=== PATIENT | female | born 1975 | race Caucasian/White ===

== ENCOUNTER 2021-06-30 18:41 | Emergency (ER) | payer MEDICAID, SELFPAY ==
[2021-06-30 18:49] VITALS: BP 132/79; PULSE 142; RESP 22; TEMP 37.2; O2SAT 97; BMI 30.6
--- NOTE | 2021-06-30 18:58 | ED_ITS ---
HPI - Headache General: Chief Complaint: Headache Stated Complaint: head and neck pain Time Seen by Provider: 06/30/21 18:58 History of Present Illness: Ms. Shukla is a 46-year-old lady who presents emergency department due to headache and racing heart. She has a somewhat complex history of substance abuse, denies IV drug use, no about a month and a half ago. She was moving earlier this week and feels like she threw out her back. She primarily laid on the couch yesterday and then today around noon tried to get up when she had a popping feeling and sudden severe pain in her he ad. It took her a while to present as she did not have cell phone signal to call for help. She has also noticed racing heart. She does have a history of occasional headache however nothing like this in the past. Overall intensity symptoms has persisted. Intensity is moderate to severe. Denies associated neurologic symptoms. Has had associated generalized unwellness however denies other specific exacerbating relieving factors. Pertinent past history: other Onset (ago): hour(s) Onset description: suddenly Location: occipital Severity: severe Quality & Timing: aching and sharp Relieving factors: nothing Context: other Review of Systems General: Reports: 10 or more systems reviewed and unremarkable except in HPI and below PFSH ED PFSH: Medical History No significant past medical history Surgical History No significant past surgical history Social History Smoking and tobacco status: current every day smoker Substance/Drug Use: former Female Reproductive History: Date of last menstrual period: 06/25/21 Physical Exam Const: COMMON NORMALS: patient oriented x3 and alert GENERAL APPEARANCE: cooperative, well developed and ill appearing HENMT: COMMON NORMALS: normocephalic and atraumatic HEAD & SCALP: normocephalic and atraumatic THROAT: posterior oropharynx normal Eye: COMMON NORMALS: conjunctivae normal CONJUNCTIVA: Yes conjunctivae normal SCLERA: sclerae normal Neck/C-Spine: COMMON NORMALS: supple GENERAL: Yes trachea midline Resp: COMMON NORMALS: normal respiratory effort and clear to auscultation bilaterally EFFORT & INSPECTION: Yes able to speak in complete sentences AUSCULTATION: clear to auscultation bilaterally Cardio: COMMON NORMALS: regular rhythm RATE: tachycardic RHYTHM: regular rhythm GI: COMMON NORMALS: Soft to palpation PALPATION: Yes Soft to palpation and No Tenderness to palpation present (GI) PERCUSSION: normal to percussion Extremity: GENERAL: Yes normal exam except as noted and No edema Neuro: COMMON NORMALS: patient oriented x3, CN's II-XII intact bilaterally, moves all extremities, no focal motor deficits and no sensory deficits noted SENSORIUM/ORIENTATION: Yes alert and No Orientation impaired Psych: COMMON NORMALS: mental status grossly normal and Normal thought process present THOUGHT PROCESS: Normal thought process present Course ED course: - Patient was seen and evaluated by me at bedside - Patient placed on cardiac monitors, IV access obtained - Initial evaluation notable for somewhat ill appearance as above, no focal neurologic deficits - Symptom treatment ordered including headache cocktail and IV fluids - Labs notable for leukocytosis. Metabolic panel with evidence of dehydration. Urinalysis concerning for urinary tract infection (repeat required given squamous epithelial contamination) - Given history as well as clinical appearance advanced imaging is warranted. Negative head CT and CTA head neck for significant finding enough to explain patient's symptoms, incidental findings given to patient. Negative chest CT for dissection or PE, no evidence of infection on spine or evidence of traumatic injury. - Upon serial reexamination after treatment the patient was markedly improved with near complete resolution of symptoms. She clinically appears well and nontoxic. - Based on patient history, evaluation, labs, and imaging as interpreted the most likely cause of the patient's condition is somewhat unclear, likely secondary to a headache and patient does have a urinary tract infection. I do not feel that patient's symptomology, initial overall presentation, and initial tachycardia is primarily related to her UTI as she is largely asymptomatic with this and improvement in heart rate correlated with improvement in headache and associated symptoms. Will follow blood cultures. - The results of ED evaluation were discussed with the patient including prescriptions and/or symptomatic cares (if applicable) including appropriate and responsible use, followup plan, and return precautions. Patient requested fluconazole which was prescribed given history of yeast infection with prior antibiotic use. The patient verbalized understanding and felt safe for discharge. - Patient discharged in satisfactory condition. Note: Click bubbles or prepopulated shipman in note writing are used for assistance with data collection and billing and are inherently more limited than narrative and other text portions of this note. Please use narrative for additional clinical history and defer to narrative/free test for any case of contradictory information. If information appears in only free text or click bubble it should be considered present or absent as reported. Please contact note advertising writer for clarifications of clinical information or contradictory information. MDM is a brief summary, contradictory or erroneous seeming information should be clarified and full note should be reviewed. Vital Signs: Vital signs: Vital Signs Temperature 99.0 F 06/30/21 18:49 Pulse Rate 87 06/30/21 23:57 Respiratory Rate 18 06/30/21 23:57 Blood Pressure 139/82 06/30/21 23:57 Pulse Oximetry 96 06/30/21 23:57 MDM - Headache Medical Decision Making 46-year-old lady with a significant past medical history of substance abuse presenting with headache. Patient initially ill on appearance. ED evaluation extensively performed given patient's history and clinical appearance however only notable for urinary tract infection. Upon reassessment patient was markedly improved and well-appearing with normalization of vital signs. Satisfactory for outpatient management with strict return precautions. Medical Records I reviewed the patient's medical records. Lab Data I reviewed the patient's lab results. : 06/30/21 19:02 06/30/21 19:[address] 06/30/21 19:08 IMPRESSION: No acute intracranial abnormality. Head/Neck CTA 06/30/21 19:08 IMPRESSION: 1. Mild atherosclerotic disease at the cavernous segments of the right and left internal carotid arteries. No occlusion, thrombosis, stenosis, extravasation, dissection, or aneurysm. 2. Incidental/nonacute findings are listed in the report. IMPRESSION: 1. Limited visualization of the proximal left CCA due to streak artifact from contrast in the adjacent central veins. Otherwise unremarkable CT angiogram of the cervical arteries. No occlusion, thrombosis, stenosis, extravasation, dissection, or aneurysm. 2. Incidental/nonacute findings are listed in the report. REFERENCES: NASCET CRITERIA. The degree of internal carotid artery stenosis is based on NASCET criteria. Normal is no stenosis. Mild is less than 50% stenosis. Moderate is 50-69% stenosis. Severe is 70% to 99% stenosis. Total occlusion is no detectable patent lumen. Lumbar Spine CT 06/30/21 19:08 IMPRESSION: 1. L4-L5 broad-based disc bulge with mild spinal canal and moderate bilateral foraminal narrowing. 2. L5/S1 bilobed posterior disc bulge with mild bilateral foraminal narrowing. 3. Diverticulosis without diverticulitis. Chest CTA 06/30/21 19:13 IMPRESSION: 1. Negative for pulmonary embolus or airspace infiltrate. 2. Cholelithiasis. Laboratory Results WBC 12.2 10^3/uL (4.0-10.0) H 06/30/21 19:02 RBC 4.82 10^6/uL (4.1-5.3) 06/30/21 19:02 Hgb 14.8 g/dL (11.5-15.3) 06/30/21 19:02 Hct 43.7 % (37.0-47.0) 06/30/21 19:02 MCV 90.7 fl (81-99) 06/30/21 19:02 MCH 30.7 pg (28.0-34.0) 06/30/21 19:02 MCHC 33.9 g/dL (30.0-36.0) 06/30/21 19:02 RDW 12.2 % (12.1-15.1) 06/30/21 19:02 Plt Count 325 10^3/cmm (130-400) 06/30/21 19:02 MPV 9.7 fL (7.4-10.4) 06/30/21 19:02 Neut % (Auto) 74.6 % 06/30/21 19:02 Lymph % (Auto) 14.9 % 06/30/21 19:02 Clinch % (Auto) 9.3 % 06/30/21 19:02 Eos % (Auto) 0.3 % 06/30/21 19:02 Baso % (Auto) 0.4 % 06/30/21 19:02 Neut # (Auto) 9.07 10^3/uL (1.8-7.7) H 06/30/21 19:02 Lymph # (Auto) 1.8 10^3/uL (0.8-4.8) 06/30/21 19:02 Clinch # (Auto) 1.1 10^3/uL (0.2-0.9) H 06/30/21 19:02 Eos # (Auto) 0.0 10^3/uL (0.0-0.8) 06/30/21 19:02 Baso # (Auto) 0.1 10^3/uL (0.0-0.1) 06/30/21 19:02 Nucleated RBC % (auto) 0 % 06/30/21 19:02 Nucleated RBCs # 0.0 /100WBC 06/30/21 19:02 Sodium 134 mmol/L (136-145) L 06/30/21 19:02 Potassium 4.3 mmol/L (3.5-5.1) 06/30/21 19:02 Chloride 96 mmol/L (98-107) L 06/30/21 19:02 Carbon Dioxide 24 mmol/L (22-29) 06/30/21 19:02 Anion Gap 18.3 (5-19) 06/30/21 19:02 BUN 7 mg/dL (6-20) 06/30/21 19:02 Creatinine 0.6 mg/dL (0.5-0.9) 06/30/21 19:02 GFR Calculation 108.6 mL/min (90-130) 06/30/21 19:02 Glucose 110 mg/dL (65-115) 06/30/21 19:02 POC Glucose 115 mg/dL (70-110) H 06/30/21 19:02 Calculated Osmolality 277 mOsm/kg (285-295) L 06/30/21 19:02 Lactic Acid 0.9 mmol/L (0.5-2.2) 06/30/21 20:26 Calcium 9.8 mg/dL (8.5-10.5) 06/30/21 19:02 Magnesium 2.0 mg/dL (1.7-2.3) 06/30/21 19:02 Total Bilirubin 0.4 mg/dL (0.15-1.2) 06/30/21 19:02 AST 11 U/L (0-32) 06/30/21 19:02 ALT 9 U/L (0-33) 06/30/21 19:02 Alkaline Phosphatase 91 IU/L (35-105) 06/30/21 19:02 Troponin T Baseline 6 ng/L (0-10) 06/30/21 19:02 Troponin T 120 Minute 6.00 ng/L (0-10) 06/30/21 20:26 Delta Troponin T 0 ABS# (0-10) 06/30/21 20:26 Total Protein 7.2 g/dL (6.6-8.7) 06/30/21 19:02 Albumin 4.4 g/dL (3.5-5.2) 06/30/21 19:02 Globulin 2.8 g/dL (1.3-4.6) 06/30/21 19:02 TSH 2.70 uIU/mL (0.27-4.20) 06/30/21 19:02 HCG, Qual Negative (Negative) 06/30/21 19:30 Urine Color Yellow (Yellow) 06/30/21 22:50 Urine Appearance Clear (CLEAR) 06/30/21 22:50 Urine pH 7 (5-7) 06/30/21 22:50 Ur Specific [place] 1.000 (1.005-1.030) L 06/30/21 22:50 Urine Protein Neg (Negative) 06/30/21 22:50 Urine Glucose (UA) Norm (Normal) 06/30/21 22:50 Urine Ketones Negative (Negative) 06/30/21 22:50 Urine Blood Trace (Negative) H 06/30/21 22:50 Urine Nitrate Positive (Negative) H 06/30/21 22:50 Urine Bilirubin Neg (Negative) 06/30/21 22:50 Urine Urobilinogen Norm mg/dL (Negative) 06/30/21 22:50 Ur Leukocyte Esterase 1+ (Negative) H 06/30/21 22:50 Ur Microscopic Indic Cancelled 06/30/21 22:50 Urine RBC 0-4 /hpf (0-2) H 06/30/21 22:50 Urine WBC 25-40 /hpf (0-5) H 06/30/21 22:50 Ur Squamous Epith Cells 0-4 /hpf (0-5) H 06/30/21 22:50 Amorphous Sediment Not Reportable 06/30/21 22:50 Urine Bacteria 2+ /hpf (NONE) H 06/30/21 22:50 Urine Opiates Screen Negative ng/mL (Negative) 06/30/21 19:30 Ur Barbiturates Screen Negative ng/mL (Negative) 06/30/21 19:30 Ur Phencyclidine Scrn Negative ng/mL (Negative) 06/30/21 19:30 Ur Amphetamines Screen Negative ng/mL (Negative) 06/30/21 19:30 U Benzodiazepines Scrn Negative ng/mL (Negative) 06/30/21 19:30 Urine Cocaine Screen Negative ng/mL (Negative) 06/30/21 19:30 U Marijuana (THC) Screen Negative ng/mL (Negative) 06/30/21 19:30 EKG Data EKG 1: I personally reviewed and interpreted this EKG as follows: EKG interpretation date: 06/30/21 EKG interpretation time: 19:02 Interpretation: Twelve-lead EKG shows a regular rhythm at a rate of 128. KS interval 126, QRS duration 88, QTc 362. Normal axis. Interpretation: Sinus tachycardia. Nonspecific ST segment abnormalities. EKG 2: I personally reviewed and interpreted this EKG as follows: EKG interpretation date: 06/30/21 EKG interpretation time: 21:24 Interpretation: Twelve-lead EKG shows a regular rhythm at a rate of 114. KS interval 133, QRS duration 98, QTc 370. Normal axis. Interpretation: Sinus rhythm. Nonspecific ST segment abnormalities Discharge Plan Discharge Patient Disposition: Home Clinical Impression: Headache, Tachycardia, Leukocytosis, Dehydration, UTI (urinary tract infection) Condition: Stable Prescriptions: New cephalexin 500 mg capsule 500 mg PO Q6H 10 Days Qty: 40 0RF Discharge Orders: Discharge ED (Routine); Ordered 06/30/21 Ordered By: Demian Goss Discharge Diet: Usual diet Discharge Activity: Resume usual activity Patient Instructions: Opioid Safety Activity Restrictions/Additional Instructions: Thank you for visiting the emergency department. You were seen and evaluated for headache and tachycardia. The exact cause of your symptoms is unclear however you were found to have a urinary tract infection which will be treated with antibiotics. Please follow-up with your primary care provider. Please return to the emergency department for worsening symptoms, inability to tolerate oral intake, overall feeling worse, any new neurologic symptoms such as speech difficulty weakness or numbness, or anything else that you are concerned about and feel needs emergency department evaluation. There were a number of incidental findings on the imaging were performed. These include: Cholelithiasis (gallstones however no evidence of infection of the gallbladder), L4-L5 broad-based disc bulge with mild spinal canal and moderate bilateral foraminal narrowing, L5-S1 bilobed posterior disc bulge with mild bilateral foraminal narrowing, diverticulosis, mild atherosclerotic disease at the cavernous segments of the right and left internal carotid arteries. These can be further discussed and managed by your primary care provider. Coding Level of Care Code ED Digital Developer for Chg Fwd Exam Comprehensive
[2021-06-30 19:06] VITALS: BP 145/97; PULSE 129; RESP 19; O2SAT 96
--- NOTE | 2021-06-30 19:08 | CTR_ITS ---
PROCEDURE INFORMATION: Exam: CT Angiography Head With Contrast, Arteriography Exam date and time: 06/30/2021 7:08 PM Age: 46 years old Clinical indication: Pain; Headache; Additional info: Headache, tachycardia TECHNIQUE: Imaging protocol: Computed tomography angiography of the head with contrast. Exam focused on the arteries. 3D rendering (Not supervised by radiologist): MIP and/or 3D reconstructed images were created by the technologist. Radiation optimization: All CT scans at this facility use at least one of these dose optimization techniques: automated exposure control; mA and/or kV adjustment per patient size (includes targeted exams where dose is matched to clinical indication); or iterative reconstruction. Contrast material: OMNI 350; Contrast volume: 95 ml; Contrast route: INTRAVENOUS (IV); COMPARISON: CT head wo con* [id number] 06/30/2021 8:31 PM RADIATION DOSE METRICS: Total DLP (mGy-cm): 2147.95 FINDINGS: ANTERIOR CIRCULATION: Right internal carotid artery: Mild calcified plaque at the cavernous segment. No occlusion, thrombosis, stenosis, extravasation, dissection, or aneurysm. Right middle cerebral artery: Unremarkable. No occlusion, thrombosis, stenosis, extravasation, dissection, or aneurysm. Right anterior cerebral artery: Unremarkable. No occlusion, thrombosis, stenosis, extravasation, dissection, or aneurysm. Anterior communicating artery: The anterior communicating artery is unremarkable. Left internal carotid artery: Mild calcified plaque at the cavernous segment. No occlusion, thrombosis, stenosis, extravasation, dissection, or aneurysm. Left middle cerebral artery: Unremarkable. No occlusion, thrombosis, stenosis, extravasation, dissection, or aneurysm. Left anterior cerebral artery: Unremarkable. No occlusion, thrombosis, stenosis, extravasation, dissection, or aneurysm. POSTERIOR CIRCULATION: Right vertebral artery: Unremarkable. No occlusion, thrombosis, stenosis, extravasation, dissection, or aneurysm. Left vertebral artery: Unremarkable. No occlusion, thrombosis, stenosis, extravasation, dissection, or aneurysm. Basilar artery: Unremarkable. No occlusion, thrombosis, stenosis, extravasation, dissection, or aneurysm. Right posterior cerebral artery: Unremarkable. No occlusion, thrombosis, stenosis, dissection, or aneurysm. Left posterior cerebral artery: Unremarkable. No occlusion, thrombosis, stenosis, extravasation, dissection, or aneurysm. Right posterior communicating artery: The right posterior communicating artery is unremarkable. Left posterior communicating artery: The left posterior communicating artery is unremarkable. Veins: The dural sinuses and deep cerebral veins are patent. Brain: No definite mass, mass effect, or midline shift. Cerebral ventricles: No hydrocephalus. Orbital cavity: Globes and lenses, extraocular muscles, and optic nerves are intact bilaterally. No acute intraorbital abnormality. Bones/joints: No acute fracture. Mastoid air cells: Mastoid air cells are clear bilaterally. Soft tissues: No acute abnormality of the extracranial soft tissues. Paranasal sinuses: Paranasal sinuses are clear. Nasal cavity: Moderate left nasal septal deviation. PROCEDURE INFORMATION: Exam: CT Angiography Neck With Contrast Exam date and time: 06/30/2021 7:08 PM Age: 46 years old Clinical indication: Pain; Headache; Additional info: Headache, tachycardia TECHNIQUE: Imaging protocol: Computed tomography angiography of the neck with contrast. 3D rendering (Not supervised by radiologist): MIP and/or 3D reconstructed images were created by the technologist. Radiation optimization: All CT scans at this facility use at least one of these dose optimization techniques: automated exposure control; mA and/or kV adjustment per patient size (includes targeted exams where dose is matched to clinical indication); or iterative reconstruction. Contrast material: OMNI 350; Contrast volume: 95 ml; Contrast route: INTRAVENOUS (IV); COMPARISON: CT head wo con* [id number] 06/30/2021 8:31 PM RADIATION DOSE METRICS: Total DLP (mGy-cm): 2147.95 FINDINGS: Right common carotid artery: Unremarkable. No occlusion, thrombosis, stenosis, extravasation, dissection, or aneurysm. Right internal carotid artery: Unremarkable. No occlusion, thrombosis, stenosis, extravasation, dissection, or aneurysm. Right external carotid artery: Unremarkable. No occlusion, thrombosis, stenosis, extravasation, dissection, or aneurysm. Left common carotid artery: Limited visualization of the proximal left CCA due to streak artifact from contrast in the adjacent central veins. The left CCA is otherwise unremarkable. No occlusion, thrombosis, stenosis, extravasation, dissection, or aneurysm. Left internal carotid artery: Unremarkable. No occlusion, thrombosis, stenosis, extravasation, dissection, or aneurysm. Left external carotid artery: Unremarkable. No occlusion, thrombosis, stenosis, extravasation, dissection, or aneurysm. Right vertebral artery: Unremarkable. No occlusion, thrombosis, stenosis, extravasation, dissection, or aneurysm. Left vertebral artery: Unremarkable. No occlusion, thrombosis, stenosis, extravasation, dissection, or aneurysm. Brachiocephalic artery: Unremarkable. No occlusion, thrombosis, stenosis, extravasation, dissection, or aneurysm. Subclavian arteries: Unremarkable. No occlusion, thrombosis, stenosis, extravasation, dissection, or aneurysm. Aorta: Unremarkable as visualized. No occlusion, thrombosis, stenosis, extravasation, dissection, or aneurysm. Lymph nodes: No lymphadenopathy. Soft tissues: No soft tissue swelling. No radiopaque foreign body. Bones/joints: Multilevel degenerative changes of varying severity in the visualized spine. Lungs: Visualized lungs are clear. CT/CT angio headneck* [id number] IMPRESSION: 1. Mild atherosclerotic disease at the cavernous segments of the right and left internal carotid arteries. No occlusion, thrombosis, stenosis, extravasation, dissection, or aneurysm. 2. Incidental/nonacute findings are listed in the report. IMPRESSION: 1. Limited visualization of the proximal left CCA due to streak artifact from contrast in the adjacent central veins. Otherwise unremarkable CT angiogram of the cervical arteries. No occlusion, thrombosis, stenosis, extravasation, dissection, or aneurysm. 2. Incidental/nonacute findings are listed in the report. REFERENCES: NASCET CRITERIA. The degree of internal carotid artery stenosis is based on NASCET criteria. Normal is no stenosis. Mild is less than 50% stenosis. Moderate is 50-69% stenosis. Severe is 70% to 99% stenosis. Total occlusion is no detectable patent lumen.
--- NOTE | 2021-06-30 19:08 | CTR_ITS ---
PROCEDURE INFORMATION: Exam: CT Head Without Contrast Exam date and time: 06/30/2021 7:08 PM Age: 46 years old Clinical indication: Pain; Headache TECHNIQUE: Imaging protocol: Computed tomography of the head without contrast. Radiation optimization: All CT scans at this facility use at least one of these dose optimization techniques: automated exposure control; mA and/or kV adjustment per patient size (includes targeted exams where dose is matched to clinical indication); or iterative reconstruction. COMPARISON: CT head wo con* [id number] 03/12/2015 12:06 AM RADIATION DOSE METRICS: Total DLP (mGy-cm): 896.01 FINDINGS: Brain: Normal. No hemorrhage. Unremarkable white matter. No mass effect. Cerebral ventricles: No ventriculomegaly. Paranasal sinuses: Visualized sinuses are unremarkable. No fluid levels. Mastoid air cells: Visualized mastoid air cells are well aerated. Bones/joints: Unremarkable. No acute fracture. Soft tissues: Unremarkable. CT/CT head wo con* [id number] IMPRESSION: No acute intracranial abnormality.
--- NOTE | 2021-06-30 19:08 | CTR_ITS ---
PROCEDURE INFORMATION: Exam: CT Lumbar Spine Without Contrast Exam date and time: 06/30/2021 7:08 PM Age: 46 years old Clinical indication: Low back pain TECHNIQUE: Imaging protocol: Computed tomography images of the lumbar spine without contrast. Radiation optimization: All CT scans at this facility use at least one of these dose optimization techniques: automated exposure control; mA and/or kV adjustment per patient size (includes targeted exams where dose is matched to clinical indication); or iterative reconstruction. COMPARISON: No relevant prior studies available. RADIATION DOSE METRICS: Total DLP (mGy-cm): 2265.67 FINDINGS: Vertebrae: No acute fracture. Normal alignment. L1-L2: No significant disc protrusion. No severe spinal canal stenosis. No significant neural foraminal narrowing. L2-L3: No significant disc protrusion. No severe spinal canal stenosis. No significant neural foraminal narrowing. L3-L4: No significant disc protrusion. No severe spinal canal stenosis. No significant neural foraminal narrowing. L4-L5: L4-L5 broad-based disc bulge with mild spinal canal and moderate bilateral foraminal narrowing. L5-S1: L5/S1 bilobed posterior disc bulge with mild bilateral foraminal narrowing. Stomach and bowel: Diverticulosis without diverticulitis. Soft tissues: Unremarkable. CT/CT lumbar spine wo con* [id number] IMPRESSION: 1. L4-L5 broad-based disc bulge with mild spinal canal and moderate bilateral foraminal narrowing. 2. L5/S1 bilobed posterior disc bulge with mild bilateral foraminal narrowing. 3. Diverticulosis without diverticulitis.
--- NOTE | 2021-06-30 19:11 | ECG_ITS ---
[facility] Test Date: 2021-06-30 Pat Name: Sonia Shukla Department: Room: Gender: Female Security Monitor: : 1975 Requested By: Demian Goss Order Number: [id number] Valdes MD: Alex Ritchie M.D. Measurements Intervals [place] Rate: 128 P: 61 MO: 126 QRS: 85 QRSD: 88 T: 52 QT: 286 QTc: 418 Interpretive Statements SINUS TACHYCARDIA POSSIBLE RIGHT VENTRICULAR CONDUCTION DELAY [RSR (QR) IN V1/V2] MINIMAL ST DEPRESSION [0.025+ mV ST DEPRESSION] No previous ECG available for comparison Electronically Signed On 06-30-2021 22:16:39 ORGAN TUNER by Alex Ritchie M.D. [id number]
--- NOTE | 2021-06-30 19:13 | CTR_ITS ---
PROCEDURE INFORMATION: Exam: CTA Chest With Contrast Exam date and time: 06/30/2021 7:13 PM Age: 46 years old Clinical indication: Sternal or substernal pain; Additional info: Tachy, pain, headache, AMS, eval dissection TECHNIQUE: Imaging protocol: Computed tomographic angiography of the chest with contrast. 3D rendering (Not supervised by radiologist): MIP and/or 3D reconstructed images were created by the technologist. Radiation optimization: All CT scans at this facility use at least one of these dose optimization techniques: automated exposure control; mA and/or kV adjustment per patient size (includes targeted exams where dose is matched to clinical indication); or iterative reconstruction. Contrast material: OMNI 350; Contrast volume: 75 ml; Contrast route: INTRAVENOUS (IV); COMPARISON: CT Cervical Spine wo* [id number] 03/12/2015 12:10 AM RADIATION DOSE METRICS: Total DLP (mGy-cm): 1700.78 FINDINGS: Pulmonary arteries: Normal. No pulmonary emboli. Aorta: Unremarkable. No aortic aneurysm. No aortic dissection. Lungs: Unremarkable. No consolidation. No masses. Pleural spaces: Unremarkable. No pneumothorax. No pleural effusion. Heart: Unremarkable. No cardiomegaly. No pericardial effusion. Lymph nodes: Unremarkable. No enlarged lymph nodes. Gallbladder and bile ducts: Cholelithiasis. Bones/joints: Unremarkable. No acute fracture. Soft tissues: Unremarkable. CT/CT angio chest [id number] IMPRESSION: 1. Negative for pulmonary embolus or airspace infiltrate. 2. Cholelithiasis.
[2021-06-30 19:23] VITALS: RESP 17
[2021-06-30] MEDS: morphine 4 mg/mL SDV 1 mL IVP (19:23)
[2021-06-30 19:29] LABS: Basophils # 0.1 10^3/uL (0.0-0.1); Basophils % 0.4 %; Eosinophils % 0.3 %; Hematocrit 43.7 % (37.0-47.0); Hemoglobin 14.8 g/dL (11.5-15.3); Lymphocytes # 1.8 10^3/uL (0.8-4.8); Lymphocytes % 14.9 %; Mean Corpuscular HGB Conc 33.9 g/dL (30.0-36.0); Mean Corpuscular Hemoglobin 30.7 pg (28.0-34.0); Mean Corpuscular Volume 90.7 fl (81-99); Mean Platelet Volume 9.7 fL (7.4-10.4); Monocytes # 1.1 10^3/uL (0.2-0.9); Monocytes % 9.3 %; Neutrophils # 9.07 10^3/uL (1.8-7.7); Neutrophils % 74.6 %; Nucleated Red Blood Cells % 0 %; Platelet Count 325 10^3/cmm (130-400); Red Blood Count 4.82 10^6/uL (4.1-5.3); Red Cell Distribution Width 12.2 % (12.1-15.1); White Blood Count 12.2 10^3/uL (4.0-10.0)
[2021-06-30] MEDS: lactated ringers 1,000 ML 999 ML IV ×2 (19:39→22:13)
[2021-06-30 19:55] LABS: HCG Qualitative Urine. Negative (Negative)
[2021-06-30 19:56] LABS: Troponin(5th) Baseline 6 ng/L (0-10)
[2021-06-30 20:03] LABS: Alanine Aminotransferase 9 U/L (0-33); Albumin Level 4.4 g/dL (3.5-5.2); Alkaline Phosphatase 91 IU/L (35-105); Anion Gap 18.3 (5-19); Aspartate Amino Transferase 11 U/L (0-32); Blood Urea Nitrogen 7 mg/dL (6-20); Calcium 9.8 mg/dL (8.5-10.5); Carbon Dioxide 24 mmol/L (22-29); Chloride 96 mmol/L (98-107); Globulin 2.8 g/dL (1.3-4.6); Glomerular Filtration Rate 108.6 mL/min (90-130); Glucose 110 mg/dL (65-115); Osmolality Calculated 277 mOsm/kg (285-295); Potassium 4.3 mmol/L (3.5-5.1); Sodium 134 mmol/L (136-145); Total Bilirubin 0.4 mg/dL (0.15-1.2); Total Protein 7.2 g/dL (6.6-8.7)
[2021-06-30 20:06] VITALS: BP 146/85; PULSE 114; RESP 21; O2SAT 96
[2021-06-30] MEDS: iohexol 350 mg/mL 100 mL Btl IV ×2 (20:33→20:34)
[2021-06-30 20:36] LABS: Amphetamines Screen Urine Negative (Negative); Barbiturates Screen Urine Negative (Negative); Benzodiazepines Screen Urine Negative (Negative); Cocaine Screen Urine Negative (Negative); Opiate Screen Urine Negative (Negative); PCP Screen Urine Negative (Negative); THC Screen Urine Negative (Negative)
[2021-06-30 20:42] LABS: Add Urine Culture? No; Add Urine Microscopic? YES; Bacteria Urine 3+ /hpf; Bilirubin Urine Neg (Negative); Blood Urine 2+ (Negative); Glucose Urine UA Norm (Normal); Ketones Urine Negative (Negative); Leukocyte Esterase Urine 2+ (Negative); Nitrate Urine Positive (Negative); Protein Urine Neg (Negative); RBC Urine 0-4 /hpf (0-2); Specific Gravity, Urine 1.005 (1.005-1.030); Squamous Epithelial Cell Urine 40-55 /hpf (0-5); Urine Appearance Hazy (CLEAR); Urine Color Yellow (Yellow); Urobilinogen Urine Norm (Negative); WBC Urine 40-55 /hpf (0-5); pH Urine 7 (5-7)
[2021-06-30 20:48] LABS: Glucose Point of Care 115 mg/dL (70-110)
[2021-06-30 20:57] LABS: Lactic Sepsis W/Reflex 0.9 mmol/L (0.5-2.2)
[2021-06-30 21:03] LABS: Troponin 5 2HR Delta 0 ABS# (0-10)
--- NOTE | 2021-06-30 21:11 | ECG_ITS ---
[facility] Test Date: 2021-06-30 Pat Name: Sonia Shukla Department: Room: Gender: Female Franchise Consultant: : 1975 Requested By: Demian Goss Order Number: [id number] Keisha MD: Alex Ritchie M.D. Measurements Intervals [place] Rate: 114 P: 71 NE: 133 QRS: 84 QRSD: 98 T: 40 QT: 302 QTc: 417 Interpretive Statements SINUS TACHYCARDIA POSSIBLE LEFT ATRIAL ENLARGEMENT [-0.1mV P-WAVE IN V1/V2] INCOMPLETE RIGHT BUNDLE BRANCH BLOCK [90+ ms QRS DURATION, TERMINAL R IN V1/V2, 40+ ms S IN I/aVL/V4/V5/V6] ABNORMAL RHYTHM ECG Compared to ECG 06/30/2021 19:01:01 Incomplete right bundle-branch block now present ST (T wave) deviation no longer present Electronically Signed On 06-30-2021 22:19:30 SUPERVISOR EPOXY FABRICATION by Alex Ritchie M.D. [id number]
[2021-06-30] MEDS: diphenhydrAMINE 50 mg/mL SDV 1mL 25 MG IVP (21:21)
[2021-06-30] MEDS: ketorolac 30 mg/mL INJ 15 MG IVP (21:21)
[2021-06-30] MEDS: metoclopramide 5 mg/mL SDV 2 mL 10 MG IVP (21:21)
[2021-06-30 23:19] LABS: Add Urine Culture? Yes; Bacteria Urine 2+ /hpf; Bilirubin Urine Neg (Negative); Blood Urine Trace (Negative); Glucose Urine UA Norm (Normal); Ketones Urine Negative (Negative); Leukocyte Esterase Urine 1+ (Negative); Nitrate Urine Positive (Negative); Protein Urine Neg (Negative); RBC Urine 0-4 /hpf (0-2); Squamous Epithelial Cell Urine 0-4 /hpf (0-5); Urine Appearance Clear (CLEAR); Urine Color Yellow (Yellow); Urobilinogen Urine Norm (Negative); WBC Urine 25-40 /hpf (0-5); pH Urine 7 (5-7)
[2021-06-30] MEDS: cefTRIAXone 1,000 MG in sodium chloride 0.9% (plus) 50 ML 100 MG IV (23:38)
[2021-06-30 23:57] VITALS: BP 139/82; PULSE 87; RESP 18; O2SAT 96
[2021-07-02 02:09] LABS: Bacillus cereus group Not Detected (NOT DETECT); Bacillus subtillis group Not Detected (NOT DETECT); Corynebacterium Not Detected (NOT DETECT); Cutibacterium acnes (P.acnes) Not Detected (NOT DETECT); Enterococcus Not Detected (NOT DETECT); Enterococcus faecalis Not Detected (NOT DETECT); Enterococcus faecium Not Detected (NOT DETECT); Lactobacillus species Not Detected (NOT DETECT); Listeria Not Detected (NOT DETECT); Listeria monocytogenes Not Detected (NOT DETECT); Micrococcus Detected (NOT DETECT); Pan Candida Not Detected (NOT DETECT); Pan Gram-Negative Not Detected (NOT DETECT); Staphylococcus epidermidis Not Detected (NOT DETECT); Staphylococcus lugdunensis Not Detected (NOT DETECT); Staphylococcus species Not Detected (NOT DETECT); Streptococcus agalactiae Not Detected (NOT DETECT); Streptococcus anginosus group Not Detected (NOT DETECT); Streptococcus pneumoniae Not Detected (NOT DETECT); Streptococcus pyogenes Not Detected (NOT DETECT); Streptococcus species Not Detected (NOT DETECT)
== END 2021-06-30 23:54 | disposition home or self-care (01) ==
PROVIDERS: Emergency Provider Emergency Medicine
DX: R51.9 Headache, unspecified (principal); R00.0 Tachycardia, unspecified; D72.829 Elevated white blood cell count, unspecified; E86.0 Dehydration; N39.0 Urinary tract infection, site not specified; F17.210 Nicotine dependence, cigarettes, uncomplicated
CPT/HCPCS: 36416; 70450; 70496; 70498; 71275; 72131; 80053; 80306; 81001; 81025; 82962; 83605; 83735; 84443; 84484; 85025; 87040; 87077; 87086; 87150; 87186; 87205; 93005; 96361; 96365; 96375; 99284; J0696; J1200; J1885; J2270; J2765; Q9967

== ENCOUNTER 2023-05-23 10:48 | Emergency (ER) | payer MEDICAID, SELFPAY ==
[2023-05-23] VITALS (13 sets, daily range): BP systolic 87–121; BP diastolic 52–73; PULSE 93–129; RESP 14–21; TEMP 36.6; O2SAT 94–100; BMI 31.8
--- NOTE | 2023-05-23 10:57 | ED_ITS ---
HPI - General Adult 2 General: Chief complaint: Fever Stated complaint: Fever,Body aches, CP Time Seen by Provider: 05/23/23 10:55 Source: patient Mode of arrival: ambulatory History of Present Illness: 48-year-old female presents to the emerg ency room with complaint of having fever myalgias for the last 4 days. She has not had a productive cough no diarrhea. Mild dysuria no hematuria. She does use Tylenol at home for fevers afebrile on arrival here. Patient is a smoker. Onset (ago): day(s) (4) Relieving factors: none Exacerbating factors: none Associated symptoms: Reports chest pain; Deny confusion, cough, diaphoresis, decreased appetite, dyspnea, fevers/chills, headache(s), malaise, nausea, rash, palpitations, seizures, short of breath, syncope, vomiting or weakness Treatments prior to arrival: none Review of Systems 2 Const: Reports: fever(s), chills, body aches and fatigue; Denies: malaise or diaphoresis Card: Reports: chest pain; Denies: palpitations or syncope Resp: Denies: dyspnea GI: Denies: abdominal pain, nausea or vomiting : Denies: dysuria, urinary frequency or urinary urgency Musc: Denies: neck pain or back pain Skin/Breast: Denies: rash Neuro: Denies: headache(s) or confusion PFSH ED 2 PFSH: Medical History Tobacco use No significant past medical history Surgical History No significant past surgical history Social History Smoking and tobacco/nicotine status: current every day tobacco/nicotine user cigarettes Packs smoked per day: 0.5 Alcohol intake: never Substance/Drug Use: former Physical Exam 2 Const: COMMON NORMALS: no acute distress GENERAL APPEARANCE: cooperative and comfortable ORIENTATION/CONSCIOUSNESS: Yes awake, Yes oriented to person, Yes oriented to place and Yes oriented to time HENMT: COMMON NORMALS: normocephalic, atraumatic and hearing grossly normal bilaterally HEAD & SCALP: normocephalic and atraumatic Resp: COMMON NORMALS: normal respiratory effort, No retractions, No use of accessory muscles and clear to auscultation bilaterally AUSCULTATION: clear to auscultation bilaterally Cardio: COMMON NORMALS: regular rate, regular rhythm and No murmurs present (Cardio) RATE: regular rate RHYTHM: regular rhythm GI: COMMON NORMALS: Soft to palpation and No hepatosplenomegaly present A USCULTATION: Yes normoactive bowel sounds PALPATION: Yes Soft to palpation, No Tenderness to palpation present (GI), No Guarding due to palpation present (GI) and Yes No hepatosplenomegaly present Extremity: COMMON NORMALS: normal to inspection, capillary refill normal, no clubbing, cyanosis or edema, no calf tenderness and no pedal edema Neuro: SENSORIUM/ORIENTATION: Yes oriented to person, Yes oriented to place and Yes oriented to time Skin: COMMON NORMALS: no rashes or lesions noted GENERAL SKIN EXAM: no rashes or lesions noted Course 2 Vital Signs: Vital signs: Vital Signs Temperature 97.9 F 05/23/23 10:58 Pulse Rate 122 H 05/24/23 07:00 Respiratory Rate 17 05/24/23 07:00 Blood Pressure 106/52 05/24/23 07:00 Pulse Oximetry 100 05/24/23 07:00 Oxygen Delivery Me thod Room Air 05/24/23 06:04 MDM - General Adult Medical Decision Making Pyelonephritis. Technically she does not meet criteria for sepsis however clinically she is borderlining on the sepsis you have been given a sepsis bolus cultured and ordered an antibiotic started. Because of adverse weather conditions EMS has declined to transfer to [facility] we have received a physician there she will have to wait in the emergency room until weather improves and were able to transfer her I am not sure how long that will be. We have consulted the hospitalist to help us comanage medically in the emergency room until transportation becomes available. 05/24/2023 9:35 AM Patient remained stable throughout the [facility]. Appreciate assistance of hospitalist and managing patient. White count did improve her blood pressure is still borderline she is still tachycardic despite receiving fairly aggressive fluid bolus and continuing on maintenance fluids. She is continuing on the Rocephin at this time. Transportation has become available and will transfer patient via [facility] to [facility] hospitalist service will receive there and urology be consulted. Medical Records I reviewed the patient's medical records. Lab Data I reviewed the patient's lab results. 05/24/23 05:42 05/24/23 05:42 Radiology Impressions Chest X-Ray 05/23/23 11:05 IMPRESSION: No active cardiopulmonary findings. Abdomen/Pelvis CT 05/23/23 12:32 IMPRESSION: 1. Multifocal hypodensities throughout both kidneys with a large coalescent hypodensity at the right lower pole of the kidney, and another large coalescing hypodensity at the left interpole, findings suspicious for multifocal acute pyelonephritis with development of cortical abscesses. 2. Bilateral Ureteritis. 3. Cholelithiasis without any evidence of acute cholecystitis. 4. Reactive lymphadenopathy. 5. Hepatomegaly. COMMENTS: Consistent with the [employer]'s Incidental Findings Committee white paper (J Am Tracey Radiol 2018): Any incidental renal lesion less than 1 cm or classified as too small to characterize, or any incidental cystic renal lesion characterized as simple-appearing, is likely benign. No follow-up imaging is recommended for these lesions per consensus recommendations based on imaging criteria. THIS REPORT CONTAINS FINDINGS THAT MAY BE CRITICAL TO PATIENT CARE. The findings were verbally communicated via telephone conference with CHEPE Paz at 1:49 PM [facility] KAY MACHINE OPERATOR on 05/23/2023. The findings were acknowledged and understood. Laboratory Results WBC 17.27 10^3/uL (3.29-11.43) H 05/24/23 05:42 RBC 3.41 10^6/uL (3.85-5.65) L 05/24/23 05:42 Hgb 10.70 g/dL (11.27-16.99) L 05/24/23 05:42 Hct 31.1 % (36-47) L 05/24/23 05:42 MCV 91.2 fl (85-98) 05/24/23 05:42 MCH 31.4 pg (27-33) 05/24/23 05:42 MCHC 34.4 g/dL (30-55) 05/24/23 05:42 RDW 13.4 % (12.1-15.1) 05/24/23 05:42 Plt Count 261 10^3/cmm (157-399) 05/24/23 05:42 MPV 8.9 fL (7.4-10.4) 05/24/23 05:42 Neut % (Auto) 85.5 % 05/24/23 05:42 Lymph % (Auto) 4.9 % 05/24/23 05:42 Alcorn % (Auto) 5.6 % 05/24/23 05:42 Eos % (Auto) 0.4 % 05/24/23 05:42 Baso % (Auto) 0.8 % 05/24/23 05:42 Neut # (Auto) 14.76 10^3/uL (1.8-7.7) H 05/24/23 05:42 Lymph # (Auto) 0.9 10^3/uL (0.8-4.8) 05/24/23 05:42 Alcorn # (Auto) 1.0 10^3/uL (0.2-0.9) H 05/24/23 05:42 Eos # (Auto) 0.1 10^3/uL (0.0-0.8) 05/24/23 05:42 Baso # (Auto) 0.1 10^3/uL (0.0-0.1) 05/24/23 05:42 Nucleated RBC % (auto) 0 % 05/24/23 05:42 Nucleated RBCs # 0.0 /100WBC 05/24/23 05:42 Sodium 136 mmol/L (136-145) 05/24/23 05:42 Potassium 3.5 mmol/L (3.5-5.1) 05/24/23 05:42 Chloride 105 mmol/L (98-107) 05/24/23 05:42 Carbon Dioxide 18 mmol/L (22-29) L 05/24/23 05:42 Anion Gap 16.5 (5-19) 05/24/23 05:42 BUN 16 mg/dL (6-20) 05/24/23 05:42 Creatinine 1.0 mg/dL (0.5-0.9) H 05/24/23 05:42 GFR Calculation 59.7 mL/min (90-130) L 05/24/23 05:42 Glucose 91 mg/dL (65-115) 05/24/23 05:42 Calculated Osmolality 279 mOsm/kg (285-295) L 05/23/23 12:34 Lactic Acid 1.7 mmol/L (0.5-2.2) 05/23/23 12:34 Calcium 8.1 mg/dL (8.5-10.5) L 05/24/23 05:42 Phosphorus 2.4 mg/dL (2.5-4.5) L 05/24/23 05:42 Total Bilirubin 1.4 mg/dL (0.15-1.2) H 05/23/23 12:34 AST 21 U/L (0-32) 05/23/23 12:34 ALT 18 U/L (0-33) 05/23/23 12:34 Alkaline Phosphatase 339 U/L (35-105) H 05/23/23 12:34 Total Protein 6.3 g/dL (6.6-8.7) L 05/23/23 12:34 Albumin 2.4 g/dL (3.5-5.2) L 05/24/23 05:42 Globulin 3.6 g/dL (1.3-4.6) 05/23/23 12:34 HCG, Qual Negative (Negative) 05/23/23 12:34 Urine Color Yellow (Yellow) 05/23/23 12:04 Urine Appearance Cloudy (CLEAR) A 05/23/23 12:04 Urine pH 5 (5-7) 05/23/23 12:04 Ur Specific [place] 1.015 (1.005-1.030) 05/23/23 12:04 Urine Protein 1+ (Negative) H 05/23/23 12:04 Urine Glucose (UA) Norm (Normal) 05/23/23 12:04 Urine Ketones Negative (Negative) 05/23/23 12:04 Urine Blood 2+ (Negative) H 05/23/23 12:04 Urine Nitrate Positive (Negative) H 05/23/23 12:04 Urine Bilirubin 1+ (Negative) H 05/23/23 12:04 Urine Urobilinogen 4 mg/dL (Negative) H 05/23/23 12:04 Ur Leukocyte Esterase 2+ (Negative) H 05/23/23 12:04 Urine RBC 5-10 /hpf (0-2) H 05/23/23 12:04 Urine WBC 25-40 /hpf (0-5) H 05/23/23 12:04 Ur Squamous Epith Cells 10-15 /hpf (0-5) H 05/23/23 12:04 Amorphous Sediment Not Reportable 05/23/23 12:04 Urine Bacteria 3+ /hpf (NONE) H 05/23/23 12:04 Coronavirus 229E (PCR) Not detected (NOT DETECT) 05/23/23 11:05 Influenza Type A Ag negative (Negative) 05/23/23 11:05 Influenza Type B Ag negative (Negative) 05/23/23 11:05 SARS-CoV-2 (PCR) Not detected (NOT DETECT) 05/23/23 11:05 All radiology interpretation(s) finalized by discharge Discharge Plan Discharge Patient Disposition: Transfer to ED Clinical Impression: Pyelonephritis, Acute kidney injury, Hypokalemia Condition: Stable Prescriptions: No Action hydrocodone-acetaminophen 5-325 mg tablet 1 tab PO Q6H PRN (Reason: pain) 7 Days Qty: 28 0RF sulfamethoxazole-trimethoprim [Bactrim DS] 800-160 mg tablet 1 tab PO BID 10 Days Qty: 20 0RF miscellaneous medical supply Misc 1 ea miscellaneous BID Qty: 1 0RF Rx Instructions: m Coding Level of Care Code ED Professor Of Public Administration for Florin Chiang
--- NOTE | 2023-05-23 11:05 | XRR_ITS ---
PROCEDURE INFORMATION: Exam: XR Chest Exam date and time: 05/23/2023 11:29 AM Age: 48 years old Clinical indication: Cough and dyspnea; Additional info: Dyspnea/cough TECHNIQUE: Imaging protocol: Radiologic exam of the chest. Views: 1 view. COMPARISON: CT angio chest [id number] 06/30/2021 8:38 PM FINDINGS: Lungs: Unremarkable. No consolidation. Pleural spaces: Unremarkable. No pleural effusion. No pneumothorax. Heart/Mediastinum: Unremarkable. No cardiomegaly. Bones/joints: Partially visualized subacute to chronic fractures of left posterior ribs # 5, 6, and 8. XR/XR chest 1V portable [id number] IMPRESSION: No active cardiopulmonary findings.
[2023-05-23] MEDS: acetaminophen 500 mg Tablet 1000 MG PO (11:12)
[2023-05-23] MEDS: sodium chloride 0.9% 1,000 ML 999 ML IV ×3 (11:13→22:14)
[2023-05-23 11:33] LABS: Basophils # 0.1 10^3/uL (0.0-0.1); Basophils % 0.6 %; Eosinophils # 0.1 10^3/uL (0.0-0.8); Eosinophils % 0.2 %; Hematocrit 38.8 % (36-47); Lymphocytes # 0.8 10^3/uL (0.8-4.8); Lymphocytes % 3.6 %; Mean Corpuscular HGB Conc 34.5 g/dL (30-55); Mean Corpuscular Hemoglobin 30.8 pg (27-33); Mean Corpuscular Volume 89.2 fl (85-98); Mean Platelet Volume 9.6 fL (7.4-10.4); Monocytes # 2.1 10^3/uL (0.2-0.9); Neutrophils # 19.82 10^3/uL (1.8-7.7); Neutrophils % 84.2 %; Nucleated Red Blood Cells % 0 %; Platelet Count 290 10^3/cmm (157-399); Red Blood Count 4.35 10^6/uL (3.85-5.65); Red Cell Distribution Width 12.8 % (12.1-15.1); White Blood Count 23.53 10^3/uL (3.29-11.43)
[2023-05-23 12:20] LABS: Influenza A by IFA negative (Negative); Influenza B by IFA negative (Negative)
--- NOTE | 2023-05-23 12:32 | CTR_ITS ---
PROCEDURE INFORMATION: Exam: CT Abdomen And Pelvis With Contrast Exam date and time: 05/23/2023 1:17 PM Age: 48 years old Clinical indication: Abdominal pain; Generalized; Additional info: Abd pain TECHNIQUE: Imaging protocol: Computed tomography of the abdomen and pelvis with contrast. Radiation optimization: All CT scans at this facility use at least one of these dose optimization techniques: automated exposure control; mA and/or kV adjustment per patient size (includes targeted exams where dose is matched to clinical indication); or iterative reconstruction. Contrast material: OMNI 350; Contrast volume: 100 ml; Contrast route: INTRAVENOUS (IV); COMPARISON: CT angio chest [id number] 06/30/2021 8:38 PM RADIATION DOSE METRICS: Total DLP (mGy-cm): 701.55 FINDINGS: Lungs: Bilateral lower lung bases are normal. Liver: There is moderate enlargement of the liver with the liver measuring up to 21 centimeters. No suspicious liver mass. Hepatic veins and portal veins are patent. No intrahepatic biliary dilatation. Gallbladder and bile ducts: Multiple calcified gallstones are present. Common bile duct measuring up to 6 millimeters. Pancreas: No pancreatic mass or pancreatitis. Pancreatic duct normal in caliber. Spleen: Normal spleen. Adrenal glands: No adrenal nodule. Kidneys and ureters: Bilateral perinephric fat stranding, in heterogeneous enhancing of the cortex with multiple hypoenhancing irregular shaped densities more prominent in the right lower pole and left inter pole. There is hyperenhancement of the proximal ureters. Stomach and bowel: No bowel obstruction. Stomach is normal in appearance. No mucosal thickening. No evidence of diverticulitis. Appendix: No evidence of appendicitis. Intraperitoneal space: Unremarkable. No free air. No significant fluid collection. Vasculature: See Liver finding. Lymph nodes: Left periaortic enlarged lymph node at the level of the left kidney measures up to 1 centimeter. Portacaval enlarged lymph node at the level of the right kidney measures up to 1 centimeter. Urinary bladder: No bladder abnormality allowing for degree of filling. Reproductive: Unremarkable as visualized. Bones/joints: No acute fracture. No aggressive lytic or blastic lesions. Soft tissues: Unremarkable soft tissues. No hernia. CT/CT abdomen pelvis w con* [id number] IMPRESSION: 1. Multifocal hypodensities throughout both kidneys with a large coalescent hypodensity at the right lower pole of the kidney, and another large coalescing hypodensity at the left interpole, findings suspicious for multifocal acute pyelonephritis with development of cortical abscesses. 2. Bilateral Ureteritis. 3. Cholelithiasis without any evidence of acute cholecystitis. 4. Reactive lymphadenopathy. 5. Hepatomegaly. COMMENTS: Consistent with the [place] [employer]'s Incidental Findings Committee white paper (J Am Tracey Radiol 2018): Any incidental renal lesion less than 1 cm or classified as too small to characterize, or any incidental cystic renal lesion characterized as simple-appearing, is likely benign. No follow-up imaging is recommended for these lesions per consensus recommendations based on imaging criteria. THIS REPORT CONTAINS FINDINGS THAT MAY BE CRITICAL TO PATIENT CARE. The findings were verbally communicated via telephone conference with CHEPE Paz at 1:49 PM TRANSPORTATION SERVICES REPRESENTATIVE on 05/23/2023. The findings were acknowledged and understood.
[2023-05-23 13:06] LABS: HCG, Serum Qual Negative (Negative)
[2023-05-23 13:10] LABS: Alanine Aminotransferase 18 U/L (0-33); Albumin Level 2.7 g/dL (3.5-5.2); Alkaline Phosphatase 339 U/L (35-105); Anion Gap 16.2 (5-19); Aspartate Amino Transferase 21 U/L (0-32); Blood Urea Nitrogen 22 mg/dL (6-20); Calcium 8.6 mg/dL (8.5-10.5); Carbon Dioxide 22 mmol/L (22-29); Chloride 97 mmol/L (98-107); Globulin 3.6 g/dL (1.3-4.6); Glomerular Filtration Rate 59.7 mL/min (90-130); Glucose 125 mg/dL (65-115); Lactic Sepsis W/Reflex 1.7 mmol/L (0.5-2.2); Osmolality Calculated 279 mOsm/kg (285-295); Potassium 3.2 mmol/L (3.5-5.1); Sodium 132 mmol/L (136-145); Total Bilirubin 1.4 mg/dL (0.15-1.2); Total Protein 6.3 g/dL (6.6-8.7)
[2023-05-23] MEDS: iohexol 350 mg/mL 500 mL Btl (per mL) IV (13:23)
[2023-05-23 13:25] LABS: Add Urine Culture? No; Add Urine Microscopic? YES; Bacteria Urine 3+ /hpf; Bilirubin Urine 1+ (Negative); Blood Urine 2+ (Negative); Glucose Urine UA Norm (Normal); Ketones Urine Negative (Negative); Leukocyte Esterase Urine 2+ (Negative); Nitrate Urine Positive (Negative); Protein Urine 1+ (Negative); Specific Gravity, Urine 1.015 (1.005-1.030); Urine Appearance Cloudy (CLEAR); Urine Color Yellow (Yellow); Urobilinogen Urine 4 mg/dL (Negative); WBC Urine 25-40 /hpf (0-5); pH Urine 5 (5-7)
[2023-05-23 13:48] LABS: Adenovirus Not Detected (NOT DETECT); Chlamydia Pneumoniae Not Detected (NOT DETECT); Coronavirus 229E,HKU1,NL63,OC4 Not Detected (NOT DETECT); Human Metapneumovirus Not Detected (NOT DETECT); Human Rhinovirus/Enterovirus Not Detected (NOT DETECT); Influenza A Not Detected (NOT DETECT); Influenza A H1 Not Detected (NOT DETECT); Influenza A H1-2009 Not Detected (NOT DETECT); Influenza A H3 Not Detected (NOT DETECT); Influenza B Not Detected (NOT DETECT); Mycoplasma Pneumoniae Not Detected (NOT DETECT); Parainfluenza Virus Type 1 Not Detected (NOT DETECT); Parainfluenza Virus Type 2 Not Detected (NOT DETECT); Parainfluenza Virus Type 3 Not Detected (NOT DETECT); Parainfluenza Virus Type 4 Not Detected (NOT DETECT); Respiratory Syncytial Virus A Not Detected (NOT DETECT); Respiratory Syncytial Virus B Not Detected (NOT DETECT); SARS-COV-2 Not Detected (NOT DETECT)
[2023-05-23] MEDS: cefTRIAXone 2,000 MG in sodium chloride 0.9% (plus) 50 ML 100 MG IV (13:57)
[2023-05-23] MEDS: sodium chlor 0.9% + KCl 20 mEq 20 MEQ/1,000 ML BAG 150 MEQ IV ×2 (14:33→21:21)
[2023-05-23] MEDS: sodium chloride 0.9% 2,449.41 ML 2449.41 ML IV (15:22)
--- NOTE | 2023-05-23 15:39 | ECG_ITS ---
[facility] Test Date: 2023-05-23 Pat Name: Sonia Shukla Department: Room: Gender: Female Lead Network Architect: : 1975 Requested By: Alfred Nickerson Order Number: [id number] Keisha MD: Alex Ritchie M.D. Measurements Intervals [place] Rate: 110 P: 61 [place]: 125 QRS: 74 QRSD: 97 T: 4 QT: 263 QTc: 357 Interpretive Statements SINUS TACHYCARDIA POSSIBLE LEFT ATRIAL ENLARGEMENT [-0.1mV P-WAVE IN V1/V2] NONSPECIFIC T-WAVE ABNORMALITY Compared to ECG 06/30/2021 21:17:22 T-wave abnormality now present Incomplete right bundle-branch block no longer present Electronically Signed On 05-24-2023 7:55:04 AIRCRAFT FUSELAGE FRAMER by Alex Ritchie M.D. [id number]
--- NOTE | 2023-05-23 21:19 | P.CONIM_ITS ---
Providers/Reason For Consult 2 Consulting Physician/Specialty*: Aaron Angeles, internal medicine Reason for Consult*: Medical management Requesting Physician: Dr. Bernal Attending Physician: Dr. Bernal History of Present Illness History of Present Illness Sonia Shukla is a 48 year old female who presents to the emergency department with fever and myalgias x 4 days. Endorses associated low back pain and dysuria. Reports using Tylenol at home with some improvement. Further workup revealed pyelonephritis with cortical abscesses with associated metabolic derangements. Patient started on IV antibiotics and IV fluids. Patient pending transfer to facility with urology support. Internal medicine consulted for medical management. She currently rates her pain is severe. Rates it 10 out of 10. Reports movement worsens pain. Review of Systems 2 Narrative: A complete review of systems was obtained and is negative except as stated in HPI. Medications/Allergies Home Medications Medication Instructions Recorded Confirmed Last Taken Type hydrocodone 5 mg-acetaminophen 325 1 tab PO Q6H PRN pain 7 days #28 02/14/23 02/14/23 Unknown Rx mg tablet tabs miscellaneous medical supply 1 ea miscellaneous BID #1 ea 02/14/23 02/14/23 Unknown Rx sulfamethoxazole 800 1 tab PO BID 10 days #20 tabs 02/14/23 02/14/23 Unknown Rx mg-trimethoprim 160 mg tablet (Bactrim DS) Allergies Allergy/AdvReac Type Severity Reaction Status Date / Time aspirin Allergy ADR-Swelling Verified 05/23/23 11:03 of the Eye Current Medications Generic Name Dose Route Start Last Admin Trade Name Freq PRN Reason Stop Dose Admin Potassium Chloride/Sodium Chloride 20 meq in 1,000 mls @ 150 mls/hr 05/23/23 14:00 05/23/23 14:33 Sodium Chlor 0.9% + Kcl 20 Meq IV 150 mls/hr .Q6H40M ALIX Administration PFSH Acute 2 PFSH: Medical History Tobacco use No significant past medical history Surgical History No significant past surgical history Social History Smoking and tobacco/nicotine status: current every day tobacco/nicotine user cigarettes Packs smoked per day: 0.5 Alcohol intake: never Substance/Drug Use: former Vitals/I&O/Wt Last Vital Signs Temp 97.9 F 05/23/23 10:58 Pulse 120 H 05/23/23 20:30 Resp 20 H 05/23/23 10:58 BP 121/70 05/23/23 20:30 Pulse Ox 95 05/23/23 20:30 O2 Del Method Room Air 05/23/23 20:30 05/23/23 05/23/23 05/23/23 06:59 14:59 22:59 Intake Total 1050 / 1050 3449.41 / 4499.41 Balance 1050 / 1050 3449.41 / 4499.41 Weight last 48 hrs Weight 81.647 kg Physical Exam 2 Narrative: General: Patient is awake. In moderate distress Head: Normocephalic. Atraumatic. EOM intact. Neck: No JVD. Cardiovascular: RRR. No gallops. No murmurs. Lungs: Clear to auscultation, no use of accessory muscles, no crackles or wheezes. Skin: No jaundice. No rashes. Abdomen: Normal bowel sounds, abdomen soft and nontender. Genito Urinary: CVA tenderness is present. Rectal: Rectal exam not performed since no symptoms indicated blood loss. Extremities: No cyanosis or clubbing. Musculoskeletal: No swollen or erythematous joints. Neurological: Moves all 4 extremities. No myoclonus. Data 05/23/23 11:20 05/23/23 12:34 A&P Assessment and plan (1) Pyelonephritis: Blood sugar cultures x 2 obtained Follow urine culture Continue ceftriaxone IV pain control due to nausea Antiemetics as needed IV fluids (2) Hypokalemia: Replacing with potassium enhanced IV fluids Repeat renal panel in a.m. On bus driver/monitor (3) Acute kidney injury: Secondary to pyelonephritis IV fluids as above Pain control Repeat renal panel in a.m. Consult Attestations 2 Medical Necessity Statement: Agree with transfer to facility with urology support. Internal medicine will follow while patient is boarding awaiting for bed. Thank you for this consultation. Coding Level of Care Code Acute Code for [facility] Diagnoses Pyelonephritis N12 Hypokalemia E87.6 Acute kidney injury N17.9
[2023-05-23] MEDS: morphine 4 mg/mL SDV 1 mL IVP (22:00)
[2023-05-24] VITALS (9 sets, daily range): BP systolic 102–117; BP diastolic 52–71; PULSE 122–131; RESP 15–18; O2SAT 94–100
--- NOTE | 2023-05-24 02:51 | PC.NURSE ---
1000ML URINE EMPTIED FROM PATIENTS BSC.
[2023-05-24] MEDS: sodium chlor 0.9% + KCl 20 mEq 20 MEQ/1,000 ML BAG 150 MEQ IV (03:26)
[2023-05-24 05:50] LABS: Basophils # 0.1 10^3/uL (0.0-0.1); Basophils % 0.8 %; Eosinophils # 0.1 10^3/uL (0.0-0.8); Eosinophils % 0.4 %; Hematocrit 31.1 % (36-47); Lymphocytes # 0.9 10^3/uL (0.8-4.8); Lymphocytes % 4.9 %; Mean Corpuscular HGB Conc 34.4 g/dL (30-55); Mean Corpuscular Hemoglobin 31.4 pg (27-33); Mean Corpuscular Volume 91.2 fl (85-98); Mean Platelet Volume 8.9 fL (7.4-10.4); Monocytes % 5.6 %; Neutrophils # 14.76 10^3/uL (1.8-7.7); Neutrophils % 85.5 %; Nucleated Red Blood Cells % 0 %; Platelet Count 261 10^3/cmm (157-399); Red Blood Count 3.41 10^6/uL (3.85-5.65); Red Cell Distribution Width 13.4 % (12.1-15.1); White Blood Count 17.27 10^3/uL (3.29-11.43)
[2023-05-24 06:12] LABS: Albumin Level 2.4 g/dL (3.5-5.2); Anion Gap 16.5 (5-19); Blood Urea Nitrogen 16 mg/dL (6-20); Calcium 8.1 mg/dL (8.5-10.5); Carbon Dioxide 18 mmol/L (22-29); Chloride 105 mmol/L (98-107); Glomerular Filtration Rate 59.7 mL/min (90-130); Glucose 91 mg/dL (65-115); Phosphorus 2.4 mg/dL (2.5-4.5); Potassium 3.5 mmol/L (3.5-5.1); Sodium 136 mmol/L (136-145)
--- NOTE | 2023-05-24 11:38 | P.PN_ITS ---
Subjective 2 Subjective: Seen this morning in follow-up for consultation. She reported some swelling. Some back pain. Medications: Reviewed: Yes Vitals/I&O/Wt Last Vital Signs Temp 97.9 F 05/23/23 10:58 Pulse 122 H 05/24/23 07:00 Resp 17 05/24/23 07:00 BP 106/52 05/24/23 07:00 Pulse Ox 100 05/24/23 07:00 O2 Del Method Room Air 05/24/23 06:04 05/23/23 05/24/23 05/24/23 22:59 06:59 14:59 Intake Total 4449.41 / 5499.41 1999. Balance 4449.41 / 5499.41 1999. Weight last 48 hrs Weight 81.647 kg Physical Exam 2 Narrative: General exam, no distress Neck is supple Cardiovascular tachycardic, no murmur Lungs clear Abdomen is soft, slight tenderness inferior to umbilicus Extremities no cyanosis clubbing. Edema is noted of the feet and hands. Data 05/24/23 05:42 05/24/23 05:42 A&P Assessment and plan (1) Pyelonephritis: Presents with pyelonephritis Continue Rocephin 2 g IV every 24 hours Urine culture pending, blood culture pending (2) Nephritic abscess: See above Pending transfer for urology evaluation. May need drainage for source control. (3) Acute kidney injury: Acute kidney injury associated with severe infection. Renal function stable Reduce fluids slightly. She is becoming edematous (4) Anemia: Continue to follow, associated with acute illness Plan Hypokalemia, resolved Attestations 2 Medical Necessity Statement*: Not applicable Transfer appropriate for urologic coverage Diagnoses Pyelonephritis N12 Nephritic abscess N15.1 Acute kidney injury N17.9 Anemia D64.9 Time Spent (min) 25
== END 2023-05-24 09:20 ==
PROVIDERS: Internal Medicine; Emergency Provider Family Medicine
DX: N12 Tubulo-interstitial nephritis, not specified as acute or chronic (principal); N17.9 Acute kidney failure, unspecified; E87.6 Hypokalemia; Z11.52 Encounter for screening for COVID-19; K80.20 Calculus of gallbladder without cholecystitis without obstruction; Z72.0 Tobacco use
CPT/HCPCS: 36415; 71045; 74177; 80053; 80069; 81001; 83605; 84703; 85025; 87040; 87635; 87804; 93005; 96361; 96365; 96375; 99285; J0696; J2270; J3480; J7030; Q9967